=== PATIENT | male | born 1985 | race Caucasian/White ===

== ENCOUNTER 2016-12-22 13:04 | Emergency (ER) | payer BC, OTHER ==
[~2016-12-22] VITALS: Ht 162.6 cm; Wt 78.9 kg
[~2016-12-22 13:04] MED LIST: LORA-396
[2016-12-22 13:20] VITALS: Ht 162.6 cm; Wt 78.9 kg
[2016-12-22] MEDS ORDERED: ONDANSETRON 4 MG INJ IV STA (15:37)
[2016-12-22] MEDS: SOD CHLORIDE 0.9% 1,000 ML IV ONE ×2 (15:45→17:07)
[2016-12-22] MEDS ORDERED: MECLIZINE 12.5 MG TAB PO ONE (16:00)
[2016-12-22 16:09] LABS: ADD SCAN DIFF NO
[2016-12-22 16:15] LABS: BASOPHILS % 0.2 % (0.0-2.0); EOSINOPHILS # 0.1 10^3/ul (0.0-0.5); EOSINOPHILS % 0.5 % (0.0-7.0); HEMATOCRIT 45.8 % (42.0-52.0); HEMOGLOBIN 15.7 g/dl (14.0-18.0); LYMPHOCYTES # 1.4 10^3/ul (0.8-2.9); LYMPHOCYTES % 9.5 % (15.0-51.0); MEAN CORPUSCULAR HEMOGLOBIN 29.8 pg (29.0-33.0); MEAN CORPUSCULAR HGB CONC 34.3 g/dl (32.0-37.0); MEAN CORPUSCULAR VOLUME 87.1 fl (82.0-101.0); MONOCYTE # 0.9 10^3/ul (0.3-0.9); MONOCYTES % 5.8 % (0.0-11.0); NEUTROPHIL # 12.5 10^3/ul (1.6-7.5); NEUTROPHILS % 83.8 % (39.0-77.0); PLATELET COUNT 243 10^3/UL (140-415); RED BLOOD COUNT 5.26 10^6/ul (4.70-6.10); RED CELL DISTRIBUTION WIDTH 12.3 % (11.5-14.5); WHITE BLOOD COUNT 14.9 10^3/ul (4.8-10.8)
[2016-12-22 16:48] LABS: ALBUMIN 4.6 g/dl (3.3-4.9)
[2016-12-22 16:49] LABS: POTASSIUM 4.2 mmol/L (3.5-5.1)
[2016-12-22 16:51] LABS: ALBUMIN/GLOBULIN RATIO 1.31; BILIRUBIN,INDIRECT 0.4 mg/dl (0-1.1); BILIRUBIN,TOTAL 0.4 mg/dl (0.2-1.3); CREATININE 0.94 mg/dl (0.61-1.24); TOTAL PROTEIN 8.1 g/dl (6.1-8.1)
[2016-12-22 16:52] LABS: CALCIUM 9.3 mg/dl (8.4-10.2)
[2016-12-22] MEDS ORDERED: SOD CHLORIDE 0.9% 1,000 ML IV ONE (17:00)
--- NOTE | 2016-12-22 18:53 | RADRPT ---
PROCEDURE: CT Abdomen and Pelvis without contrast. CLINICAL INDICATION: Pain. Diarrhea.. TECHNIQUE: CT scan of the abdomen and pelvis was performed on a multidetector slice CT scanner. N o intravenous contrast material was utilized. Sagittal and coronal reformatted images were obtained from the axial source images. Images were reviewed on a high-resolution PACS workstation. Exam CTDl vol = 17 mGy and DLP = 72 Gy-cm. One of the following 3 dose reduction techniques were used: Automa gretel exposure control; adjustment of the mA and/or kV according to patient size; or use of iterative reconstruction technique. COMPARISON: None. FINDINGS: There is no obstruction or ileus. The appendix is not visualized. There are pericecal surgical cli ps suggesting prior appendectomy.. There is no evidence for acute appendicitis. There is no eviden ce for diverticulitis. There is no free fluid. The liver is overall normal in size. No intrahepatic lesions are identified. The gallbladder is no rmal in appearance. There is no definite biliary ductal dilation. Pancreas is normal in appearance. Spleen is unremarkable.. There are no adrenal masses. The aorta is normal caliber. Kidneys are normal in appearance without hydronephrosis, mass or calculus. Ureters are of normal ca liber. Urinary bladder is unremarkable. There are no fractures. There is incidental note of sacral spine definite defects. Limited evaluation lung bases is unremarkable. IMPRESSION: 1. No obstruction or ileus. 2. No evidence for diverticulitis. 3. Status post appendectomy. 4. Otherwise negative examination. RPTAT: HMVK .Romero Chung MD, Date Time Electronically viewed and signed by .Romero Chung MD, MD on 12/22/2016 18:53 .K/
[2016-12-22] MEDS ORDERED: MECL12.574 PO (19:02)
[2016-12-22] MEDS ORDERED: CETI10CA PO (19:10)
[2016-12-22 19:20] VITALS: BP 118/75; PULSE 72; RESP 16; TEMP 98.7
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
== END 2016-12-22 19:22 | disposition home or self-care (01) ==
LOC: FTE 13:04
DX: R10.32 Left lower quadrant pain (principal)
CPT/HCPCS: 36415; 74176; 80053; 83690; 85025; 93005; 96374; 99285; J2405; J7030

== ENCOUNTER 2018-01-11 11:53 | Emergency (ER) | END 2018-01-11 15:05 | disposition home or self-care (01) ==

== ENCOUNTER 2019-02-12 06:49 | Emergency (ER) | payer SELFPAY ==
[~2019-02-12] VITALS: Ht 170.2 cm; Wt 100.2 kg
[~2019-02-12 06:49] MED LIST changes: +CETI10CA PO; +MECL12.574 PO
[2019-02-12 06:51] VITALS: BP 182/115; PULSE 124; RESP 20; Ht 170.2 cm; Wt 100.2 kg
== END 2019-02-12 07:59 | disposition left against medical advice (07) ==
LOC: E/R 06:49
DX: Z53.21 Procedure and treatment not carried out due to patient leaving prior to being seen by health care provider (principal)
CPT/HCPCS: 93005

== ENCOUNTER 2019-06-28 20:47 | Emergency (ER) | payer MEDICAID ==
[~2019-06-28] VITALS: Ht 170.2 cm; Wt 96.0 kg
[2019-06-28 20:50] VITALS: BP 155/90; PULSE 105; RESP 16; Ht 170.2 cm; Wt 96.0 kg
== END 2019-06-28 21:51 | disposition home or self-care (01) ==
LOC: E/R 20:47
DX: R53.1 Weakness (principal)
CPT/HCPCS: 93005; Z7502